=== PATIENT | male | born 2000 | race Caucasian/White ===

== ENCOUNTER 2018-05-08 11:39 | Emergency (ER) | payer BC ==
[2018-05-08 11:54] VITALS: BP 151/75
--- NOTE | 2018-05-08 12:39 | EDM.PDOC ---
ED HPI GENERAL MEDICAL PROBLEM - General Chief Complaint: Abdominal Pain Stated Complaint: FLANK PAIN Time Seen by Provider: 05/08/18 12:15 Source of Information: Reports: Patient History Limitations: Reports: No Limitations - History of Present Illness INITIAL COMMENTS - FREE TEXT/NARRATIVE: Pt is a 18y/o M that was referred over from the clinic after complaining of RLQ abdominal pain which started 2 days ago. He describes it as a dull stabbing pain that becomes sharp with movement, hari upper torso twisting and lifting his leg- states it will radiate to his left hip and leg at times. He has never had anything like this before. No history of abdominal surgeries or issues. No history of food allergies. No recent out of country travel or camping. He states the onset was random, cannot think of anything that may have caused it, but he does mention he started drinking muscle milk for the first time on Wednesday. He denies any F/C, N/V/D, decreased appetite, bloody stool, constipation. Last normal BM was last night. 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 [No Known Home Meds] 05/08/18 [History] Past Medical History - Past Health History Medical/Surgical History: Denies Medical/Surgical History HEENT History: Reports: Other (See Below) Other HEENT History: seasonal allergies Respiratory History: Reports: Other (See Below) Other Respiratory History: outgrew asthma - Past Surgical History Musculoskeletal Surgical History: Reports: Shoulder Surgery Other Musculoskeletal Surgeries/Procedures:: rotator cuff Social & Family History - Tobacco Use Smoking Status *Q: Never Smoker - Caffeine Use Caffeine Use: Reports: Soda - Recreational Drug Use Recreational Drug Use: No - Living Situation & Occupation Living situation: Reports: Single, with Family Occupation: Employed ED ROS GENERAL - Review of Systems Review Of Systems: ROS reveals no pertinent complaints other than HPI. ED EXAM, GI/ABD - Physical Exam Exam: See Below Exam Limited By: No Limitations General Appearance: Alert, WD/WN, No Apparent Distress Eyes: Bilateral: Normal Appearance Ears: Normal External Exam, Hearing Grossly Normal Respiratory/Chest: No Respiratory Distress, Lungs Clear, Normal Breath Sounds, No Accessory Muscle Use, Chest Non-Tender Cardiovascular: Normal Peripheral Pulses, Regular Rate, Rhythm, No Edema, No Gallop, No JVD, No Murmur, No Rub GI/Abdominal Exam: Soft, Non-Tender, No Organomegaly, No Distention, No Abnormal Bruit, No Mass, Pelvis Stable, Abnormal Bowel Sounds (hypoactive), Other (positive psoas sign) (Male) Exam: Deferred Rectal (Males) Exam: Deferred Neurological: Alert, Oriented, CN II-XII Intact, Normal Cognition, Normal Gait, Normal Reflexes, No Motor/Sensory Deficits Psychiatric: Normal Affect, Normal Mood Skin Exam: Warm, Dry, Intact, Normal Color, No Rash Course - Vital Signs Last Recorded V/S: Last Vital Signs Temp 97.3 F 05/08/18 11:53 Pulse 71 05/08/18 11:53 Resp 20 05/08/18 11:53 BP 151/75 H 05/08/18 11:53 Pulse Ox 100 05/08/18 11:53 - Orders/Labs/Meds Orders: Active Orders 24 hr Category Date Time Status Abdomen Pelvis w Cont [CT] Stat Exams 05/08/18 12:39 Taken Sodium Chloride 0.9% [Saline Flush] Med 05/08/18 14:09 Active 10 ml FLUSH ONETIME PRN Medication Orders Sodium Chloride (Saline Flush) 10 ml FLUSH ONETIME PRN PRN Reason: IV FLUSH Last Admin: 05/08/18 14:20 Dose: 10 ml Labs: Laboratory Tests 05/08/18 05/08/18 05/08/18 Range/Units 12:49 12:49 14:00 WBC 8.10 (4.23-9.07) K/mm3 RBC 5.72 (4.63-6.08) M/mm3 Hgb 16.5 (13.7-17.5) gm/L Hct 48.7 (40.1-51.0) % MCV 85.1 (79.0-92.2) fl MCH 28.8 (25.7-32.2) pg MCHC 33.9 (32.2-35.5) g/dl RDW Std Deviation 39.5 (35.1-43.9) fL Plt Count 255 (163-337) K/mm3 MPV 11.4 (9.4-12.3) fl Neut % (Auto) 54.7 (34.0-67.9) % Lymph % (Auto) 31.5 (21.8-53.1) % Todd % (Auto) 10.5 (5.3-12.2) % Eos % (Auto) 2.7 (0.8-7.0) Baso % (Auto) 0.5 (0.1-1.2) % Neut # (Auto) 4.43 (1.78-5.38) K/mm3 Lymph # (Auto) 2.55 (1.32-3.57) K/mm3 Todd # (Auto) 0.85 H (0.30-0.82) K/mm3 Eos # (Auto) 0.22 (0.04-0.54) K/mm3 Baso # (Auto) 0.04 (0.01-0.08) K/mm3 Sodium 139 (136-145) mEq/L Potassium 4.1 (3.5-5.1) mEq/L Chloride 103 (98-107) mEq/L Carbon Dioxide 27 (21-32) mEq/L Anion Gap 13.1 (5-15) BUN 16 (7-18) mg/dL Creatinine 1.1 (0.7-1.3) mg/dL Est Cr Clr Drug Dosing 121.06 mL/min Estimated GFR (MDRD) > 60 (>60) mL/min BUN/Creatinine Ratio 14.5 (14-18) Glucose 89 (74-106) mg/dL Calcium 9.3 (8.5-10.1) mg/dL Total Bilirubin 0.9 (0.2-1.0) mg/dL AST 21 (15-37) U/L ALT 37 (16-63) U/L Alkaline Phosphatase 109 (46-116) U/L Total Protein 7.7 (6.4-8.2) g/dl Albumin 3.9 (3.4-5.0) g/dl Globulin 3.8 gm/dL Albumin/Globulin Ratio 1.0 (1-2) Lipase 125 (73-393) U/L Urine Color Yellow (Yellow) Urine Appearance Clear (Clear) Urine pH 6.5 (5.0-8.0) Ur Specific [place] 1.020 (1.005-1.030) Urine Protein Negative (Negative) Urine Glucose (UA) Negative (Negative) Urine Ketones Negative (Negative) Urine Occult Blood Negative (Negative) Urine Nitrite Negative (Negative) Urine Bilirubin Negative (Negative) Urine Urobilinogen 0.2 (0.2-1.0) Ur Leukocyte Esterase Negative (Negative) Urine RBC 0-5 (0-5) /hpf Urine WBC 0-5 (0-5) /hpf Ur Epithelial Cells 0-5 (0-5) /hpf Urine Bacteria Rare (FEW) /hpf Urine Mucus Few (FEW) /hpf Meds: Medications Generic Name Dose Route Start Last Admin Trade Name Freq PRN Reason Stop Dose Admin Sodium Chloride 10 ml 05/08/18 14:05/08/18 14:20 Saline Flush FLUSH 10 ml ONETIME PRN Administration IV FLUSH Discontinued Medications Generic Name Dose Route Start Last Admin Trade Name Freq PRN Reason Stop Dose Admin Diatrizoate Meglum/Diatrizoate Sod 120 ml 05/08/18 14:05/08/18 14:20 Gastrografin 37% PO 05/08/18 14:10 90 ml ONETIME ONE Administration Iopamidol 150 ml 05/08/18 14:09 05/08/18 14:20 Isovue-300 (61%) IVPUSH 05/08/18 14:10 125 ml ONETIME ONE Administration - Re-Assessments/Exams Free Text/Narrative Re-Assessment/Exam: 05/08/18 12:40 Have ordered CBC, CMP, Lipase, U/A, CT ab with contrast 05/08/18 15:07 Labs are WNL. U/A unimpressive for infection. Received a call from [facility] that CT ab has come back with equivical findings for possible mild acute appendicitis. I have contacted general surgeon Dr. Nathaniel Cash who will come examine the pt. 05/08/18 16:06 Dr. Cash saw pt and has r/o appendicitis. Recommends pt to return home and return to ED if any worsening of symptoms. Departure - Departure Time of Disposition: 16:07 Disposition: Home, Self-Care 01 Condition: Fair Clinical Impression: Abdominal pain - Discharge Information *PRESCRIPTION DRUG MONITORING PROGRAM REVIEWED*: Not Applicable *COPY OF PRESCRIPTION DRUG MONITORING REPORT IN PATIENT ROBIN: Not Applicable Instructions: Abdominal Pain, Adult, [id number] Referrals: PCP,None [Primary Care Provider] - Forms: ED Department Discharge Additional Instructions: You were seen today in the ED for right lower abdominal pain. Your labs and urine analysis did not show any infection. CT abdomen showed slightly enlarged appendix, but was not convincing for appendicitis along with your labs and clinical presentation. You were also seen by the general surgeon who also ruled this out and recommended you can go home and return to the ED if your symptoms worsen. - My Orders Last 24 Hours: My Active Orders 05/08/18 12:39 Abdomen Pelvis w Cont [CT] Stat 05/08/18 14:09 Sodium Chloride 0.9% [Saline Flush] 10 ml FLUSH ONETIME PRN - Assessment/Plan Last 24 Hours: My Active Orders 05/08/18 12:39 Abdomen Pelvis w Cont [CT] Stat 05/08/18 14:09 Sodium Chloride 0.9% [Saline Flush] 10 ml FLUSH ONETIME PRN
[2018-05-08] MEDS ORDERED: Iopamidol 612 MG/ML 150 ML Bottle IVPUSH ONE (14:09)
[2018-05-08] MEDS ORDERED: Sodium Chloride 0.9% 10 ML Syringe FLUSH PRN (14:09)
[2018-05-08] MEDS ORDERED: Diatrizoate Meglumine/Diatrizoate Sodium 37% 120 ML Bottle PO ONE (14:09)
--- NOTE | 2018-05-08 18:56 | ER ---
INTRODUCTION: This 18-year-old male presents to the emergency room with complaints of right lower quadrant pain. Emergency room evaluation was questionable for appendicitis. Therefore, they called the surgeon. I interviewed this patient and examined him. His story is that he had the pain about 48 hours ago that started as right lower quadrant pain. He has had no fever. No nausea or vomiting and he is not anorexic. He has not had any prior episodes, and this right lower quadrant pain came on relatively soon as he was working. ALLERGIES: The patient has no allergies. CURRENT MEDICATIONS: None. PRIOR SURGERIES: Left rotator cuff surgery. FAMILY HISTORY/SOCIAL HISTORY: The patient is single. 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 He does not smoke. REVIEW OF SYSTEMS: Negative for all systems. PHYSICAL EXAMINATION: HEENT: Normal. CHEST AND LUNGS: Clear bilaterally. HEART: Normal sinus rhythm. He is not tachycardic. There are no murmurs. ABDOMEN: Entirely benign. He has no rebound or guarding, and I can palpate deeply without causing any much annoy of discomfort. EXTREMITIES: No edema. NEUROLOGIC: Intact. ASSESSMENT: Right lower quadrant pain. PLAN: This patient had a white blood cell count that was normal. This would be unusual for appendicitis. He had a CAT scan that was equivocal by Radiology report for early appendicitis; however, he is in the third day of this process, and this should be strikingly abnormal by now. Since his physical examination is so benign, his white count is normal, and he is not anorexic or febrile, I think it is safe to discharge this patient from the emergency room. I did discuss with him that if he has fever, increased pain, or concerns, we will reevaluate him in the emergency room. If his pain is significant enough to return probably just recommend a laparoscopic exam and appendectomy if positive. MMODAL /[id number]
--- NOTE | 2018-05-09 07:20 | CT ---
CT abdomen and pelvis Technique: Multiple axial sections were obtained from above the dome of the diaphragm inferiorly through the pubic symphysis. Intravenous and oral contrast was utilized. Delayed images were obtained through the bladder. Comparison: No prior CT abdomen or pelvis exam. Findings: Visualized lung bases show nothing acute. Liver contains no focal abnormality. Spleen appears within normal limits. Gallbladder contains no calcified gallstones. Adrenal glands show no nodule. Pancreas is within normal limits. Kidneys show symmetric contrast enhancement without hydronephrosis or mass. Aorta shows no aneurysmal dilatation. No retroperitoneal adenopathy is seen. No pelvic mass or adenopathy is seen Slightly prominent lymph nodes noted within the right lower abdomen next to the medial cecum. Appendix is seen and measures at the upper limits of normal at 7 mm. No inflammatory change is seen around the appendix. No bowel dilatation is seen. Delayed images show contrast within the distal ureters and bladder. Bone window settings were reviewed which appear within normal limits for the patient's age. Impression: 1. Appendix at the upper limits of normal but no inflammatory change is seen around the appendix. Slightly prominent lymph nodes noted within the right lower abdomen. Findings most likely represent mesenteric adenitis. Difficult to completely exclude very early appendicitis with lymph nodes representing change from this etiology. Please correlate with patient's symptoms and white count. 2. CT study of the abdomen and pelvis is otherwise unremarkable. Diagnostic code #3 I agree with preliminary report from [facility], finalized on 05/08/18, 3:53 PM Central Time (code 2)
== END 2018-05-08 16:24 | disposition home or self-care (01) ==
LOC: JD.ED 11:39
DX: R10.31 Right lower quadrant pain (principal)
CPT/HCPCS: 36415; 74177; 80053; 81001; 83690; 85025; 99285; J7050; Q9963; Q9967; 99284

== ENCOUNTER 2020-05-30 06:24 | Day surgery (SDC) | payer BC ==
[~2020-05-30 06:24] MED LIST: EPINEPHrine 1 MG/ML 30 ML MDV IRR SCH; Lactated Ringers 1,000 ML IV SCH; Lidocaine 1%/Sod Bicarbonate in NS 8.4% 1 ML Syringe IDERM PRN; Sodium Chloride 0.9% 10 ML Syringe FLUSH PRN
[2020-05-30] MEDS ORDERED: Propofol 200 MG/20 ML SDV ONE (06:30)
[2020-05-30] MEDS ORDERED: Ketorolac 30 MG/ML SDV ONE (06:30)
[2020-05-30] MEDS ORDERED: Ondansetron 4 MG/2 ML SDV ONE (06:30)
[2020-05-30] MEDS ORDERED: fentaNYL 100 MCG/2 ML SDV ONE ×2 (06:30→07:29)
[2020-05-30] MEDS ORDERED: Lactated Ringers 1,000 ML ONE (06:30)
[2020-05-30] MEDS ORDERED: ceFAZolin 1 GM Vial ONE ×2 (06:30→07:16)
[2020-05-30] MEDS ORDERED: Midazolam 1 MG/ML 2 ML SDV ONE (06:30)
[2020-05-30] MEDS ORDERED: Lidocaine 1% 4 ML ONE (06:31)
[2020-05-30] MEDS ORDERED: Dexamethasone 4 MG/ML 5 ML MDV ONE (06:31)
[2020-05-30] MEDS ORDERED: Ketamine 500 mg/10 ML MDV ONE (06:31)
[2020-05-30] MEDS ORDERED: Bupivacaine 0.25% 10 ML SDV ONE (06:46)
[2020-05-30] MEDS ORDERED: fentaNYL 100 MCG/2 ML SDV IVPUSH PRN (06:56)
[2020-05-30] MEDS ORDERED: HYDROmorphone 0.5 MG/0.5 ML Syringe IVPUSH PRN (06:56)
[2020-05-30] MEDS ORDERED: Ondansetron 4 MG/2 ML SDV IVPUSH PRN (06:56)
--- NOTE | 2020-05-30 06:56 | PCM.PREANE ---
Preanesthetic Assessment - Procedure Proposed Procedure: Left Knee VideoArthroscopy with Synovectomy - Anesthesia/Transfusion/Family Hx Anesthesia History: Prior Anesthesia Without Reaction Family History of Anesthesia Reaction: No Transfusion History: No Prior Transfusion(s) - Review of Systems General: No Symptoms Pulmonary: No Symptoms Cardiovascular: No Symptoms Gastrointestinal: No Symptoms Neurological: No Symptoms Other: Reports: None (Obesity BMI 36.9, 60 lb weight gain over the last 4 years. ) - Physical Assessment NPO Status Date: 05/29/20 NPO Status Time: 20:30 Vital Signs: Last Vital Signs Temp 36.1 C 05/30/20 06:25 Pulse 79 05/30/20 06:25 Resp 16 05/30/20 06:25 BP 137/71 05/30/20 06:25 Pulse Ox 98 05/30/20 06:25 Height: 1.85 m Weight: 127.006 kg ASA Class: 2 Mental Status: Alert & Oriented x3 Airway Class: Mallampati = 2 Dentition: Reports: Normal Dentition Thyro-Mental Finger Breadths: 3 Mouth Opening Finger Breadths: 3 ROM/Head Extension: Full Lungs: Clear to Auscultation, Normal Respiratory Effort Cardiovascular: Regular Rate, Regular Rhythm - Lab Values: Laboratory Last Values SARS-CoV-2 (PCR) Not detected (NOT DETECT) 05/27/20 12:15 MRSA (PCR) Negative 05/17/20 10:54 - Allergies Allergies/Adverse Reactions: Allergies Allergy/AdvReac Type Severity Reaction Status Date / Time No Known Allergies Allergy Verified 05/29/20 13:14 - Anesthesia Plan Pre-Op Medication Ordered: Anxiolytic - Acknowledgements Anesthesia Type Planned: General Anesthesia (LMA) Pt an Appropriate Candidate for the Planned Anesthesia: Yes Alternatives and Risks of Anesthesia Discussed w Pt/Guardian: Yes Pt/Guardian Understands and Agrees with Anesthesia Plan: Yes PreAnesthesia Questionnaire - Past Health History Medical/Surgical History: Denies Medical/Surgical History HEENT History: Reports: Other (See Below) Other HEENT History: seasonal allergies Cardiovascular History: Reports: None Respiratory History: Reports: Other (See Below) Other Respiratory History: outgrew asthma Gastrointestinal History: Reports: None Genitourinary History: Reports: None 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: Reports: 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 Musculoskeletal History: Reports: Other (See Below) Other Musculoskeletal History: left knee pain Neurological History: Reports: None Psychiatric History: Reports: None Endocrine/Metabolic History: Reports: None Hematologic History: Reports: None Immunologic History: Reports: None Oncologic (Cancer) History: Reports: None Dermatologic History: Reports: None - Past Surgical History Head Surgeries/Procedures: Reports: None Cardiovascular Surgical History: Reports: None Respiratory Surgical History: Reports: None GI Surgical History: Reports: None Female Surgical History: Reports: None Male Surgical History: Reports: None Endocrine Surgical History: Reports: None Neurological Surgical History: Reports: None Musculoskeletal Surgical History: Reports: Shoulder Surgery Other Musculoskeletal Surgeries/Procedures:: rotator cuff Oncologic Surgical History: Reports: None Dermatological Surgical History: Reports: None - SUBSTANCE USE Smoking Status *Q: Never Smoker Recreational Drug Use History: No - HOME MEDS Home Medications: Home Meds Acetaminophen [Tylenol] 650 mg PO Q4H PRN 05/29/20 [History] Acetaminophen/HYDROcodone [[place] 325-5 MG] 1 - 2 tab PO Q6H PRN #20 tablet 05/30/20 [Rx] Aspirin [Aspirin EC] 325 mg PO BID #84 05/30/20 [Rx] - CURRENT (IN HOUSE) MEDS Current Meds: Current Medications Epinephrine HCl (Adrenalin) 3 mg IRR ONETIME KWABENA Stop: 05/30/20 16:00 Lactated Ringer's (Ringers, Lactated) 1,000 mls @ 125 mls/hr IV ASDIRECTED KWABENA Stop: 05/30/20 23:00 Lidocaine/Sodium Bicarbonate (Buffered Lidocaine 1% In Ns 8.4%) 0.25 ml IDERM ONETIME PRN PRN Reason: Prior to IV Start Stop: 05/30/20 18:00 Sodium Chloride (Saline Flush) 10 ml FLUSH ASDIRECTED PRN PRN Reason: Keep Vein Open Stop: 05/30/20 18:00 Discontinued Medications Bupivacaine HCl (Sensorcaine-Mpf 0.25%) Confirm Administered Dose 10 ml .ROUTE .STK-MED ONE Stop: 05/30/20 06:47 Cefazolin Sodium (Ancef) Confirm Administered Dose 2 gm .ROUTE .STK-MED ONE Stop: 05/30/20 06:31 Dexamethasone (Dexamethasone) Confirm Administered Dose 20 mg .ROUTE .STK-MED ONE Stop: 05/30/20 06:32 Fentanyl (Sublimaze) Confirm Administered Dose 100 mcg .ROUTE .STK-MED ONE Stop: 05/30/20 06:31 Lactated Ringer's (Ringers, Lactated) Confirm Administered Dose 1,000 mls @ as directed .ROUTE .STK-MED ONE Stop: 05/30/20 06:31 Lidocaine HCl (Xylocaine-Mpf 1%) Confirm Administered Dose 4 mls @ as directed .ROUTE .STK-MED ONE Stop: 05/30/20 06:32 Ketamine HCl (Ketalar) Confirm Administered Dose 500 mg .ROUTE .STK-MED ONE Stop: 05/30/20 06:32 Ketorolac Tromethamine (Toradol) Confirm Administered Dose 30 mg .ROUTE .STK-MED ONE Stop: 05/30/20 06:31 Midazolam HCl (Versed 1 Mg/Ml) Confirm Administered Dose 2 mg .ROUTE .STK-MED ONE Stop: 05/30/20 06:31 Ondansetron HCl (Zofran) Confirm Administered Dose 4 mg .ROUTE .STK-MED ONE Stop: 05/30/20 06:31 Propofol (Diprivan 20 Ml) Confirm Administered Dose 400 mg .ROUTE .STK-MED ONE Stop: 05/30/20 06:31
--- NOTE | 2020-05-30 08:04 | PCM.POSTAN ---
POST ANESTHESIA ASSESSMENT - MENTAL STATUS Mental Status: Somnolent - VITAL SIGNS Vital Signs: Last Vital Signs Temp 36.1 C 05/30/20 06:25 Pulse 79 05/30/20 06:25 Resp 16 05/30/20 06:25 BP 137/71 05/30/20 06:25 Pulse Ox 98 05/30/20 06:25 0755 103/47 89 11 94% 97.3f - RESPIRATORY Respiratory Status: Respiratory Rate WNL, Airway Patent, O2 Saturation Stable, Supplemental Oxygen - CARDIOVASCULAR CV Status: Pulse Rate WNL, Blood Pressure Stable - GASTROINTESTINAL GI Status: No Symptoms - PAIN Pain Score: 0 - POST OP HYDRATION Hydration Status: Adequate & Stable
--- NOTE | 2020-05-30 08:58 | PCM48HPAN ---
Post Anesthesia Note - EVALUATION WITHIN 48HRS OF ANESTHETIC Vital Signs in Normal Range: Yes Patient Participated in Evaluation: Yes Respiratory Function Stable: Yes Airway Patent: Yes Cardiovascular Function Stable: Yes Hydration Status Stable: Yes Pain Control Satisfactory: Yes Nausea and Vomiting Control Satisfactory: Yes Mental Status Recovered: Yes Vital Signs: Last Vital Signs Temp 36.3 C 05/30/20 08:40 Pulse 80 05/30/20 08:40 Resp 16 05/30/20 08:40 BP 141/79 H 05/30/20 08:40 Pulse Ox 99 05/30/20 08:40
[2020-05-30] MEDS ORDERED: Acetaminophen/HYDROcodone 325-5 MG Tab PO PRN (09:04)
[2020-05-30 13:04] VITALS: BP 133/78; PULSE 75
--- NOTE | 2020-06-06 10:41 | PCM.OPNOTE ---
- General Post-Op/Procedure Note Date of Surgery/Procedure: 05/30/20 Operative Procedure(s): left knee video arthroscopy with partial synovectomy Pre Op Diagnosis: right knee fat pad impingement Post-Op Diagnosis: Same Anesthesia Technique: General LMA, Local Primary Surgeon: Cristi Woo Anesthesia Provider: Shirley Kingsley Therapeutic Support Staff: Annika Wray in mLs: 5 Complications: None Condition: Good
--- NOTE | 2020-06-06 11:13 | OR ---
DATE OF OPERATION: 05/30/2020 SURGEON: Cristi Woo MD OPERATION PERFORMED: Left knee video arthroscopy with partial synovectomy. PREOPERATIVE DIAGNOSIS: Left knee fat pad impingement. POSTOPERATIVE DIAGNOSIS: Left knee fat pad impingement. ANESTHESIA: General LMA with local. ANESTHESIA PROVIDER: Johana Chery. LINE HAUL OWNER OPERATOR: Annika Wray PA-C. ESTIMATED BLOOD LOSS: 5 mL. COMPLICATIONS: None. CONDITION: Stable. DESCRIPTION OF PROCEDURE: The patient was identified in the preoperative holding area. Proper site was marked and identified by the surgeon. The patient was taken back to the operative theater, where after adequate anesthesia, the patient's right lower extremity was placed in a well leg stoner, left lower extremity had a nonsterile tourniquet applied, it was then placed in a C-clamp stoner. Foot of the bed was lowered. Left lower extremity was then sterilely prepped and draped in the usual sterile fashion. OR time-out was performed. Patient received 2 g IV Ancef. The left lower extremity was exsanguinated. Tourniquet was then insufflated to 250 mmHg. A standard anterolateral portal incision was made. Scope trocar was introduced to the knee joint. The patient had no chondromalacia noted, but was noted to have significant overgrowth of the fat pad anterior with significant synovitis. Attention was turned to the medial compartment. There was no loose foreign bodies. Anteromedial portal was created. The patient had no medial meniscus tear. No chondromalacia of the medial compartment. ACL was intact in the notch, although did appear to be somewhat stretched but had good femoral attachment. Lateral compartment showed no chondromalacia signs at this time, but partial synovectomy was performed of the anterior portion of the knee. The patient back to a smooth border where it would not impinge on the patellofemoral joint. Excess saline was drained from the knee. 3-0 nylon suture was used for closure skin. Patient was placed in a sterile soft dressing, sent to PACU in stable condition. MMODAL /[id number]
== END 2020-05-30 10:10 | disposition home or self-care (01) ==
LOC: JD.SDS 06:24
PROVIDERS: ATTEND Orthopaedic Surgery
DX: M25.862 Other specified joint disorders, left knee (principal); M65.862 Other synovitis and tenosynovitis, left lower leg; Z01.812 Encounter for preprocedural laboratory examination; Z20.828 Contact with and (suspected) exposure to other viral communicable diseases; L65.9 Nonscarring hair loss, unspecified; Z79.899 Other long term (current) drug therapy
CPT/HCPCS: 29875; 87635; 87641; A9270; J0171; J0690; J1100; J1885; J2001; J2250; J2405; J2704; J3010; J3490; J7120; 01400; U0002

== ENCOUNTER 2020-07-04 10:14 | Day surgery (SDC) | payer BC ==
[~2020-07-04 10:14] MED LIST changes: -EPINEPHrine 1 MG/ML 30 ML MDV IRR SCH
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
[2020-07-04] MEDS ORDERED: Bupivacaine 0.25% 10 ML SDV ONE (10:47)
[2020-07-04] MEDS ORDERED: Propofol 200 MG/20 ML SDV ONE (10:53)
[2020-07-04] MEDS ORDERED: Lidocaine 1% 4 ML ONE (10:54)
[2020-07-04] MEDS ORDERED: ceFAZolin 1 GM Vial ONE ×2 (10:55→12:34)
[2020-07-04] MEDS ORDERED: fentaNYL 250 MCG/5 ML SDV ONE (10:57)
[2020-07-04] MEDS ORDERED: Midazolam 1 MG/ML 2 ML SDV ONE (10:58)
[2020-07-04] MEDS ORDERED: EPINEPHrine 1 MG/ML 30 ML MDV IRR SCH (12:00)
[2020-07-04] MEDS ORDERED: Lactated Ringers 1,000 ML ONE (12:07)
[2020-07-04] MEDS ORDERED: Ondansetron 4 MG/2 ML SDV ONE (12:13)
[2020-07-04] MEDS ORDERED: Ketorolac 30 MG/ML SDV ONE (12:13)
[2020-07-04] MEDS ORDERED: fentaNYL 100 MCG/2 ML SDV IVPUSH PRN (12:24)
[2020-07-04] MEDS ORDERED: Ondansetron 4 MG/2 ML SDV IVPUSH PRN (12:24)
--- NOTE | 2020-07-04 13:02 | PCM.POSTAN ---
POST ANESTHESIA ASSESSMENT - MENTAL STATUS Mental Status: Alert, Oriented - VITAL SIGNS Vital Signs: Last Vital Signs Temp 36.6 C 07/04/20 10:00 Pulse 83 07/04/20 10:00 Resp 16 07/04/20 10:00 BP 132/79 07/04/20 10:00 Pulse Ox 99 07/04/20 10:00 - RESPIRATORY Respiratory Status: Respiratory Rate WNL, Airway Patent, O2 Saturation Stable - CARDIOVASCULAR CV Status: Pulse Rate WNL, Blood Pressure Stable - GASTROINTESTINAL GI Status: No Symptoms - PAIN Pain Score: 0 - POST OP HYDRATION Hydration Status: Adequate & Stable
--- NOTE | 2020-07-04 13:22 | PCM48HPAN ---
Post Anesthesia Note - EVALUATION WITHIN 48HRS OF ANESTHETIC Vital Signs in Normal Range: Yes Patient Participated in Evaluation: Yes Respiratory Function Stable: Yes Airway Patent: Yes Cardiovascular Function Stable: Yes Hydration Status Stable: Yes Pain Control Satisfactory: Yes Nausea and Vomiting Control Satisfactory: Yes Mental Status Recovered: Yes Vital Signs: Last Vital Signs Temp 36.2 C 07/04/20 13:15 Pulse 86 07/04/20 13:15 Resp 12 07/04/20 13:15 BP 117/58 L 07/04/20 13:15 Pulse Ox 99 07/04/20 13:15
[2020-07-04] MEDS ORDERED: Acetaminophen/HYDROcodone 325-5 MG Tab PO SCH (14:11)
[2020-07-04 14:41] VITALS: BP 133/71; PULSE 84
--- NOTE | 2020-07-17 15:47 | PCM.OPNOTE ---
- General Post-Op/Procedure Note Date of Surgery/Procedure: 07/04/20 Operative Procedure(s): right knee video arthroscopy with partial synovectomy Pre Op Diagnosis: right knee fat pad impingement Post-Op Diagnosis: Same Anesthesia Technique: General LMA, Local Primary Surgeon: Cristi Woo Anesthesia Provider: Kellen Lainez Sample Cutter: Annika Wray in mLs: 5 Complications: None Condition: Good
--- NOTE | 2020-07-17 16:40 | OR ---
DATE OF OPERATION: 07/04/2020 SURGEON: Cristi Woo MD OPERATION PERFORMED: Right knee video arthroscopy, partial synovectomy. PREOPERATIVE DIAGNOSIS: Right knee fat pad impingement. POSTOPERATIVE DIAGNOSIS: Right knee fat pad impingement. ANESTHESIA: General LMA with local. ANESTHESIA PROVIDER: Kellen Lainez CRNA. CERTIFIED BREASTFEEDING EDUCATOR: Annika Wray PA-C. ESTIMATED BLOOD LOSS: 5 mL. COMPLICATIONS: None. CONDITION: Stable. DESCRIPTION OF PROCEDURE: The patient was identified in the preoperative holding area where proper site was marked and identified by the surgeon. The patient was taken back to the operating theater where after adequate anesthesia, left lower extremity was placed in a well leg stoner, right lower extremity had a nonsterile tourniquet applied, was then placed in a C-clamp stoner. Foot of bed was then lowered. Right lower extremity was then sterilely prepped and draped in the usual sterile fashion. OR time-out was performed. Patient received 2 g of IV Ancef. Right lower extremity was exsanguinated. Tourniquet was insufflated to 250 mmHg. A standard anterolateral portal incision was made. Scope trocar was introduced. The patient was noted again to have significant synovitis as well as overgrowth of the fat pad anteriorly. 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 He had significant plica noted medially as well. Attention was turned to the medial compartment. Anteromedial portal was created with the use of a spinal needle. He had no chondromalacia of the medial compartment. No medial meniscus tear. ACL was intact in the notch. There was no pathology noted to the lateral compartment. Partial synovectomy was then performed at the fat pad as well as the plica in the anterior knee. Excess saline was drained from the knee. 3-0 nylon suture was used for closure of skin. The patient had sterile soft dressing applied and sent to PACU in stable condition. MMODAL /[id number]
== END 2020-07-04 14:35 | disposition home or self-care (01) ==
LOC: JD.SDS 10:14
PROVIDERS: ATTEND Orthopaedic Surgery
DX: M25.861 Other specified joint disorders, right knee (principal); M22.41 Chondromalacia patellae, right knee; M65.861 Other synovitis and tenosynovitis, right lower leg; Z79.899 Other long term (current) drug therapy; Z98.890 Other specified postprocedural states
CPT/HCPCS: 29875; 87641; A9270; J0171; J0690; J1885; J2001; J2250; J2405; J2704; J3010; J3490; J7120; 01400